=== PATIENT | male | born 1995 | race Two or more races ===

== ENCOUNTER 2019-10-07 12:56 | Emergency (ER) | payer OTHER ==
[~2019-10-07] VITALS: Ht 185.4 cm; Wt 93.0 kg
[2019-10-07 13:10] VITALS: BP 130/84
== END 2019-10-07 14:56 | disposition left against medical advice (07) ==
LOC: ER 12:56
DX: M54.5 Low back pain (principal); Z53.21 Procedure and treatment not carried out due to patient leaving prior to being seen by health care provider